=== PATIENT | male | born 1945 | race Native Hawaiian/Other Pacific Islander ===

== ENCOUNTER → 2016-06-25 | Day surgery (SDC) | payer BC ==
[~2016-06-25] MED LIST: ACETAMINOPHEN 1000 MG/100 ML VIAL IV ONE; ALEN70 PO; ALPR0.25 PO; APIX5TAB PO; BUPIVACAINE/EPINEPHRINE 0.25% PF 30 ML VIAL ONE; DILTCD240 PO; FURO1TAB93 PO; GLUCTAB PO; LACTATED RINGER'S 1000 ML INJ 1,000 ML ONE; LIDOCAINE 1%/EPINEPHrine 1:100,000 SOLN 30 ML VIAL ONE; METO50TA PO; MIDAZOLAM HCL 2 MG/2 ML VIAL ONE; NITR0.4S SL; ONDANSETRON HCL 4 MG/2 ML VIAL IV PUSH ONE; PACE200T4 PO; POTA20IN3 PO; PROPOFOL 200 MG/20 ML AMP IV ONE; PROS5TAB2 PO; RAMI2.5C29 PO; ROSU40 PO; SYNT75TA PO; TAB-TAB PO; TAMS0.4C67 PO; VANCOMYCIN HCL 1000 MG VIAL ONE; ZOLP5TAB3 PO; ceFAZolin INJ 1,000 MG VIAL ONE
--- NOTE | 2016-06-26 18:19 | MP ---
cc: JAH ARMSTRONG M.D., VANCE E. M.D. NASHED, MAGDY S. M.D. Corrected Copy: 08/02/16 DATE OF SURGERY: 06/25/2016. PREOPERATIVE DIAGNOSIS: Symptomatic right inguinal hernia. POSTOPERATIVE DIAGNOSIS: Direct and indirect symptomatic reducible right inguinal hernia. OPERATIVE PROCEDURE PERFORMED: Right inguinal hernia repair with mesh. ANESTHESIA: LMA. SURGEON: Jah Armstrong MD. HEAD TEACHER: JANETTE Andrew3. ESTIMATED BLOOD LOSS: Less than 50 mL. FLUIDS: 1250 mL crystalloid. COMPLICATIONS: None. DRAINS: None. SPECIMEN: None. DESCRIPTION OF THE PROCEDURE IN DETAIL: The patient was seen in the holding area and the right side marked by the undersigned and confirmed by the patient. He was taken to the operating room and placed on the operating table in the supine position. After an adequate level of laryngeal mask anesthesia was instituted, the groin was shaved, prepped and draped. Time-out was taken confirming the correct patient, site and procedure to be performed. The skin and subcutaneous tissue was infiltrated with local anesthetic and an incision made in the right groin in an oblique fashion and carried down through to the external oblique fascia. The external oblique fascia was then divided with a knife and opened. Underlying tissue was swept free. The iliohypogastric nerve was identified and swept free and left in [place] surrounding tissues. The spermatic cord structures were brought up on a Karthik drain. The patient was noted to have both a direct and indirect hernia component. The direct hernia was reduced and this was secured loosely in place with 2-0 Prolene sutures to keep the preperitoneal fatty tissue out of the repair. The patient was noted to have bowel and fatty tissue in the hernia sac. This was reduced into the abdominal cavity. When this had been accomplished, a 3 x 6 inch piece of Atrium Mesh was brought up and transfixed to the pubic tubercle with a 2-0 Prolene suture. This had been was run along the shelving edge of the inguinal ligament to complete the lateral edge of the repair. The mesh was then slit longitudinally to allow for egress of the cord structures. The medial side of the mesh was secured to the transversalis fascia with interrupted 2-0 Prolene sutures. Care was taken to exclude any suture from the iliohypogastric nerve. The medial leaf of mesh was then overlapped over the lateral leaf of mesh and secured at three points with 2-0 Prolene suture. This created a new internal ring that allowed for egress of the cord structures but was tight enough to minimize the risk of recurrent herniation. When this had been completed, 30 mL of 0.25% Marcaine with epinephrine was injected into the transversalis fascia and subcutaneous tissues. With hemostasis assured, the external oblique fascia was closed with a running 3-0 Vicryl suture. Care was taken to avoid incorporating any of the underlying structures including the iliohypogastric nerve into the closure. The wound was then closed with interrupted 3-0 Vicryl suture and the skin closed with 5-0 PDS in a running subcuticular fashion. The wound was dressed with Telfa and Tegaderm. The patient was taken back to the recovery room in stable condition after placement of an athletic supporter. Sponge and needle counts were reported to be correct. The patient tolerated the procedure well. MD MONIKA Sheffield/HANNAH /12:37 PM /6:13 PM LEEANNA
== END | disposition home or self-care (01) ==
LOC: ESDC 08:47
PROVIDERS: ATTEND Surgery Trauma Surgery
DX: K40.90 Unilateral inguinal hernia, without obstruction or gangrene, not specified as recurrent (principal)
CPT/HCPCS: 00830; 49505; C1781; J0131; J0690; J2250; J2405; J3010; J3370; J7120

== ENCOUNTER 2017-07-28 19:12 | Emergency (ER) | payer BC, MEDICARE ==
[~2017-07-28] VITALS: Ht 172.7 cm; Wt 68.3 kg
[~2017-07-28 19:12] MED LIST changes: -ACETAMINOPHEN 1000 MG/100 ML VIAL IV ONE; -BUPIVACAINE/EPINEPHRINE 0.25% PF 30 ML VIAL ONE; -LACTATED RINGER'S 1000 ML INJ 1,000 ML ONE; -LIDOCAINE 1%/EPINEPHrine 1:100,000 SOLN 30 ML VIAL ONE; -MIDAZOLAM HCL 2 MG/2 ML VIAL ONE; -ONDANSETRON HCL 4 MG/2 ML VIAL IV PUSH ONE; -PROPOFOL 200 MG/20 ML AMP IV ONE; -VANCOMYCIN HCL 1000 MG VIAL ONE; -ceFAZolin INJ 1,000 MG VIAL ONE
[2017-07-28 19:16] VITALS: BP 128/61; PULSE 80; RESP 16; TEMP 97.8; O2SAT 96
[2017-07-28] MEDS ORDERED: AMIO200T PO (19:47)
[2017-07-28] MEDS ORDERED: APIX5TAB PO (19:48)
[2017-07-28] MEDS ORDERED: METO50TA PO (19:48)
[2017-07-28] MEDS ORDERED: FURO40TA PO (19:51)
[2017-07-28] MEDS ORDERED: ROSU20 PO (19:51)
[2017-07-28] MEDS ORDERED: ZOLP5TAB3 PO (19:56)
[2017-07-28] MEDS ORDERED: LEVO.075 PO (19:56)
[2017-07-28] MEDS ORDERED: NITR1SUB3 SL (19:57)
[2017-07-28] MEDS ORDERED: PROS5TAB PO (19:59)
[2017-07-28] MEDS ORDERED: TAMS5CAP PO (19:59)
[2017-07-28] MEDS ORDERED: ALEN1TAB48 PO (20:00)
[2017-07-28] MEDS ORDERED: METF500T4 PO (20:00)
[2017-07-28] MEDS ORDERED: ALPR0.25 PO (20:08)
[2017-07-28] MEDS ORDERED: SACU1TAB7 PO (20:09)
[2017-07-28] MEDS ORDERED: POTA-163 PO (20:09)
[2017-07-28] MEDS ORDERED: VITA2000 PO (20:10)
--- NOTE | 2017-07-28 20:14 | PD ---
HPI Chief Complaint: Cold / Flu Symptoms Time Seen by Provider: 19:57 Travel History International Travel<30 days: No Contact w/Intl Traveler<30days: No Traveled to known affect area: No History of Present Illness HPI 72-year-old male complaint coughing congestion generalized malaise and weakness. Patient started having persistent dry cough 2 weeks ago. Patient was given prescription for Z-Sina last week. Patient states that he has persistent cough despite the Z-Sina. Patient was given prescription for Levaquin 5 mg daily for the last 4 days. Patient states that he had persistent cough despite the Levaquin. Patient denies any headache. Patient denies any neck pain. Patient denies any chest pain. Patient denies abdominal pain. Patient denies any nausea vomiting diarrhea. Patient denies any fever chills. Patient has history of atrial fibrillation, status post ablation and on Eliquis. Patient also on amiodarone and metoprolol. Patient has history of CAD status post CABG 3. Patient has history of cardiomyopathy. Patient has history of hypertension, diabetes, hyperlipidemia. Patient quit smoking in the past. Patient has ICD placement. PFSH Past Medical History Hx Anticoagulant Therapy: Yes (ELAQUIS) Atrial Fibrillation: Yes Blood Disorders: No Anxiety: Yes Heart Rhythm Problems: Yes (AFIB) Cancer: No Cardiovascular Problems: Yes High Cholesterol: Yes Chest Pain: Yes Congestive Heart Failure: Yes Diabetes: Yes Patient Takes Glucophage: Yes Diminished Hearing: No Endocrine: Yes Gastrointestinal Disorders: No Genitourinary: Yes (BLOOD IN URINE) Hypertension: Yes Immune Disorder: No Implanted Vascular Access Dvce: No Musculoskeletal: No Neurologic: No Psychiatric: Yes Reproductive: No Respiratory: No Myocardial Infarction: Yes Thyroid Disease: Yes Past Surgical History Abdominal Surgery: Yes (HERNIA SURGERY) Cardiac Surgery: Yes (CABGX3 in 1997) Coronary Artery Bypass Graft: Yes (TRIPLE BYPASS) Thoracic Surgery: Yes Other Surgery: Yes (ICD) Social History Alcohol Use: Yes (WINE OCCASIONALLY) Tobacco Use: No Substance Use: No Allergies-Medications (Allergen,Severity, Reaction): Coded Allergies: rivaroxaban (Unverified Allergy, Intermediate, 12/14/16) lisinopril (Unverified Allergy, Unknown, 12/14/16) Reported Meds & Prescriptions Reported Meds & Active Scripts Active Reported Vitamin D3 (Cholecalciferol) 2,000 Unit Cap 2,000 Units PO BID Potassium Chloride ER (Potassium Chloride) 20 Meq Tab 20 Meq PO BID Entresto (Sacubitril-Valsartan) 49-51 Mg Tab 1 Tab PO BID Alprazolam 0.25 Mg Tab 0.25 Mg PO DAILY PRN Alendronate (Alendronate Sodium) 70 Mg Tab 70 Mg PO Q7D Metformin ER (Metformin HCl) 500 Mg Shannon 500 Mg PO BID With evening meal Proscar (Finasteride) 5 Mg Tab 5 Mg PO DAILY Do not crush. Flomax (Tamsulosin HCl) 0.4 Mg Cap 0.4 Mg PO BID Nitroglycerin SL (Nitroglycerin) 0.4 Mg Subl 0.4 Mg SL DIRECTED PRN ONE TABLET UNDER THE TONGUE NEEDED FOR CHEST PAIN, MAY REPEAT EVERY FIVE MINUTES FOR A TOTAL OF 3 DOSES OR CALL 911 IF NO RELIEF Zolpidem (Zolpidem Tartrate) 5 Mg Tab 5 Mg PO HS PRN Synthroid (Levothyroxine Sodium) 75 Mcg Tab 75 Mcg PO DAILY Crestor (Rosuvastatin Calcium) 20 Mg Tab 20 Mg PO HS Furosemide 40 Mg Tab 40 Mg PO DAILY Eliquis (Apixaban) 5 Mg Tab 5 Mg PO BID Metoprolol Tartrate 50 Mg Tab 50 Mg PO BID Amiodarone (Amiodarone HCl) 200 Mg Tab 200 Mg PO DAILY Review of Systems General / Constitutional: No: Fever Eyes: No: Visual changes HENT: No: Headaches Cardiovascular: No: Chest Pain or Discomfort Respiratory: Positive: Cough, No: Shortness of Breath Gastrointestinal: No: Abdominal Pain Genitourinary: No: Dysuria Musculoskeletal: No: Pain Skin: No Rash Neurologic: No: Weakness Psychiatric: No: Depression Endocrine: No: Polydipsia Hematologic/Lymphatic: No: Easy Bruising Physical Exam Narrative GENERAL: Well-nourished, well-developed patient. SKIN: Focused skin assessment warm/dry. HEAD: Normocephalic. EYES: No scleral icterus. No injection or drainage. NECK: Supple, trachea midline. No JVD or lymphadenopathy. CARDIOVASCULAR: Regular rate and rhythm without murmurs, gallops, or rubs. RESPIRATORY: Patient has diffuse rhonchi of the mid lung on the left side. Patient has diffuse rhonchi on the right base. No wheezes. GASTROINTESTINAL: Abdomen soft, non-tender, nondistended. MUSCULOSKELETAL: No cyanosis, or edema. BACK: Nontender without obvious deformity. No CVA tenderness. Neurologic exam normal. Data Data Last Documented VS Vital Signs Date Time Temp Pulse Resp B/P (MAP) Pulse Ox O2 Delivery O2 Flow Rate FiO2 07/28/17 22:36 82 20 138/81 (100) 94 Room Air 07/28/17 19:16 97.8 Orders Orders Complete Blood Count With Diff (07/28/17 20:05) Comprehensive Metabolic Panel (07/28/17 20:05) B-Type Natriuretic Peptide (07/28/17 20:05) Prothrombin Time / Inr (Pt) (07/28/17 20:05) Act Partial Throm Time (Ptt) (07/28/17 20:05) Blood Culture (07/28/17 20:05) Influenzae A/B Antigen (07/28/17 20:05) Chest, Single Ap (07/28/17 20:05) Iv Access Insert/Monitor (07/28/17 20:05) Ecg Monitoring (07/28/17 20:05) Oximetry (07/28/17 20:05) Albuterol-Ipratropium Neb (Duoneb Neb) (07/28/17 21:15) Ct Thorax/ Chest Wo Iv Contras (07/28/17 21:17) Labs Laboratory Tests Test 07/28/17 20:15 White Blood Count 5.6 TH/MM3 Red Blood Count 4.74 MIL/MM3 Hemoglobin 13.1 GM/DL Hematocrit 39.7 % Mean Corpuscular Volume 83.7 FL Mean Corpuscular Hemoglobin 27.7 PG Mean Corpuscular Hemoglobin Concent 33.1 % Red Cell Distribution Width 13.2 % Platelet Count 222 TH/MM3 Mean Platelet Volume 8.9 FL Neutrophils (%) (Auto) 65.7 % Lymphocytes (%) (Auto) 17.8 % Monocytes (%) (Auto) 15.1 % Eosinophils (%) (Auto) 0.6 % Basophils (%) (Auto) 0.8 % Neutrophils # (Auto) 3.8 TH/MM3 Lymphocytes # (Auto) 1.0 TH/MM3 Monocytes # (Auto) 0.8 TH/MM3 Eosinophils # (Auto) 0.0 TH/MM3 Basophils # (Auto) 0.0 TH/MM3 CBC Comment DIFF FINAL Differential Comment Prothrombin Time 11.4 SEC Prothromb Time International Ratio 1.1 RATIO Activated Partial Thromboplast Time 27.7 SEC Blood Urea Nitrogen 20 MG/DL Creatinine 0.96 MG/DL Random Glucose 105 MG/DL Total Protein 7.7 GM/DL Albumin 3.4 GM/DL Calcium Level 8.6 MG/DL Alkaline Phosphatase 51 U/L Aspartate Amino Transf (AST/SGOT) 19 U/L Alanine Aminotransferase (ALT/SGPT) 66 U/L Total Bilirubin 0.8 MG/DL Sodium Level 131 MEQ/L Potassium Level 4.1 MEQ/L Chloride Level 96 MEQ/L Carbon Dioxide Level 26.2 MEQ/L Anion Gap 9 MEQ/L Estimat Glomerular Filtration Rate 77 ML/MIN B-Type Natriuretic Peptide 284 PG/ML MDM Medical Decision Making Medical Screen Exam Complete: Yes Emergency Medical Condition: Yes Interpretation(s) 21:32 PM. Chest x-ray shows cardiomegaly. CBC within normal limits. WBC 5.6. 15 monocytes. Sodium 131. BUN 20. BNP 284. 22:[address] scan of the chest shows minimal consolidation versus atelectasis left base Differential Diagnosis Differential diagnosis including bronchitis, pneumonia, pleural effusion, CHF. Narrative Course 72-year-old male with persistent cough and generalized malaise and weakness. Patient is afebrile today. Patient has normal white count with normal differential. Chest x-ray shows no acute consolidation. CT scan of the chest shows minimal consolidation versus atelectasis left base. BNP is elevated. Most likely acute exacerbation CHF and not pneumonia. Diagnosis Primary Impression: Acute exacerbation of CHF (congestive heart failure) Qualified Codes: I50.9 - Heart failure, unspecified Patient Instructions: General Instructions Additional Instructions: Increase Lasix to 60 mg daily. Follow-up with personal physician. Return if worse. Tessalon as needed for cough. Med/Other Pt SpecificInfo: Existing Med Changed Scripts Benzonatate (Tessalon Perles) 100 Mg Cap 200 MG PO TID Y for COUGH, #30 CAP 0 Refills Prov: Vikram Mathew MD 07/28/17 Disposition: 01 DISCHARGE HOME Condition: Stable Vikram Mathew MD Jul 28, 2017 20:14
[2017-07-28 20:29] LABS: AUTOMATED NEUTROPHIL # 3.8 TH/MM3 (1.8-7.7); BASOPHIL % 0.8 % (0.0-2.0); EOSINOPHIL % 0.6 % (0.0-4.0); HEMATOCRIT 39.7 % (39.0-51.0); HEMOGLOBIN 13.1 GM/DL (13.0-17.0); LYMPH % 17.8 % (9.0-44.0); MEAN CELL VOLUME 83.7 FL (80.0-100.0); MEAN CORPUSCULAR HEMOGLOBIN 27.7 PG (27.0-34.0); MEAN CORPUSCULAR HGB CONC 33.1 % (32.0-36.0); MEAN PLATELET VOLUME 8.9 FL (7.0-11.0); MONO % 15.1 % (0.0-8.0); MONOCYTE # 0.8 TH/MM3 (0-0.9); NEUT % 65.7 % (16.0-70.0); PLATELET COUNT 222 TH/MM3 (150-450); RED BLOOD COUNT 4.74 MIL/MM3 (4.50-5.90); RED CELL DISTRIBUTION WIDTH 13.2 % (11.6-17.2); WHITE BLOOD COUNT 5.6 TH/MM3 (4.0-11.0)
[2017-07-28 20:36] LABS: CHLORIDE 96 MEQ/L (98-107); SODIUM (NA) 131 MEQ/L (136-145)
[2017-07-28 20:39] LABS: ALBUMIN 3.4 GM/DL (3.4-5.0); BICARBONATE 26.2 MEQ/L (21.0-32.0); CALCIUM 8.6 MG/DL (8.5-10.1); GLUCOSE,RANDOM 105 MG/DL (74-106)
[2017-07-28 20:40] LABS: BLOOD UREA NITROGEN 20 MG/DL (7-18)
[2017-07-28 20:41] LABS: INTERNATIONAL NORMALIZED RATIO 1.1 RATIO; PROTHROMBIN TIME - PATIENT 11.4 SEC (9.8-11.6)
[2017-07-28 20:43] LABS: ALT (GPT) 66 U/L (12-78); AST (GOT) 19 U/L (15-37); CREATININE 0.96 MG/DL (0.60-1.30); GLOMERULAR FILTRATION RATE 77 ML/MIN (>89)
[2017-07-28 20:44] LABS: TOTAL BILIRUBIN ADULT 0.8 MG/DL (0.2-1.0); TOTAL PROTEIN 7.7 GM/DL (6.4-8.2)
[2017-07-28 20:45] LABS: ALKALINE PHOSPHATASE 51 U/L (45-117)
[2017-07-28 20:59] VITALS: O2SAT 96
[2017-07-28 21:00] VITALS: BP 131/73; PULSE 80; RESP 20; O2SAT 96
[2017-07-28] MEDS ORDERED: RESP: ALBUTEROL 2.5 MG/IPRATROPIUM 0.5 MG NEB (SCH) INH ONE (21:15)
--- NOTE | 2017-07-28 21:23 | RADRPT ---
EXAM DATE/TIME: 07/28/2017 20:28 [facility] COMPARISON: CHEST SINGLE AP, April 09, 2015, 13:07. INDICATIONS : Cough for 2 weeks. MEDICAL HISTORY : Hypertension. Myelopathy. Congestive heart failure. Diabetes. Afib. SURGICAL HISTORY : CABG. Pacemaker. ENCOUNTER: Initial ACUITY: 2 weeks PAIN SCORE: 0/10 LOCATION: Bilateral chest FINDINGS: The patient is status post sternotomy. There is a pacing device in place from the left subclavian niles jordan. The heart size appears enlarged. The patient is rotated towards the right. Lungs are grossly c lear. Clips are seen in the right quadrant of the abdomen. CONCLUSION: Cardiomegaly. Oli Sanchez MD on July 28, 2017 at 21:20 Board Certified Radiologist. This report was verified electronically.
--- NOTE | 2017-07-28 22:27 | RADRPT ---
EXAM DATE/TIME: 07/28/2017 21:59 [facility] COMPARISON: CHEST SINGLE AP, July 28, 2017, 20:28. INDICATIONS : Cough and congestion for two weeks. No improvement with antibiotics. RADIATION DOSE: 8.08 CTDIvol (mGy) MEDICAL HISTORY : Cardiovascular disease. Myocardial infarction. Congestive heart failure. Hypertension. SURGICAL HISTORY : CABG Pacemaker. Hernia surgery. ENCOUNTER: Initial ACUITY: 2 weeks PAIN SCALE: 0/10 LOCATION: Bilateral chest TECHNIQUE: Volumetric scanning of the chest was performed. Using automated exposure control and adjustment of t he mA and/or kV according to patient size, radiation dose was kept as low as reasonably achievable to obtain optimal diagnostic quality images. DICOM format image data is available electronically for r eview and comparison. Follow-up recommendations for detected pulmonary nodules are based at a minimum on nodule size and pa tient risk factors according to Fleischner Society Guidelines. FINDINGS: LUNGS: There is minimal increased density at the posterior left lung base. There is calcified granuloma in t he left lingular. PLEURAE: There is no pleural thickening or pleural effusion. MEDIASTINUM: The heart and great vessels demonstrate no acute abnormality. There is no mediastinal or hilar lymph adenopathy. Coronary artery calcifications are present in the [place] coronary arteries. The patient i s status post sternotomy. AXILLAE: Within normal limits. No lymphadenopathy. MUSCULOSKELETAL: Within normal limits for patient age. The patient is status post vertebroplasty at L1. MISCELLANEOUS: The visualized upper abdominal organs demonstrate no acute abnormality. There is a left thyroid nodul e. There is a left-sided pacemaker. There is a 5.5 cm low-density mass in the right lobe of the liver . CONCLUSION: 1. Minimal consolidation or atelectasis of the left lower lobe. 2. 5.5 cm low-density mass in the right lobe of the liver. This is nonspecific on this noncontrast CT examination. One could further evaluate this with a liver ultrasound examination. The patient has a pacemaker and cannot be evaluated with MRI. Oli Sanchez MD on July 28, 2017 at 22:21 Board Certified Radiologist. This report was verified electronically.
[2017-07-28 22:36] VITALS: BP 138/81; PULSE 82; RESP 20; O2SAT 94
[2017-07-28] MEDS ORDERED: BENZ100 PO (22:54)
== END 2017-07-28 23:08 | disposition home or self-care (01) ==
LOC: PHEFT 19:12
DX: I11.0 Hypertensive heart disease with heart failure (principal); I50.9 Heart failure, unspecified; E07.9 Disorder of thyroid, unspecified; E78.5 Hyperlipidemia, unspecified; E11.9 Type 2 diabetes mellitus without complications; I48.91 Unspecified atrial fibrillation; I42.9 Cardiomyopathy, unspecified; Z79.01 Long term (current) use of anticoagulants; Z79.84 Long term (current) use of oral hypoglycemic drugs; Z87.891 Personal history of nicotine dependence
CPT/HCPCS: 71045; 71250; 80053; 83880; 85025; 85610; 85730; 87040; 87804; 94664; 99285